=== PATIENT | female | born 1980 | race Caucasian/White ===

== ENCOUNTER 2017-02-24 15:06 | Observation (INO) | payer BC, MEDICAID, OTHER ==
[2017-02-24 15:07] VITALS: BMI 31.1
[2017-02-24 15:30] VITALS: RESP 18; TEMP 98.2; O2SAT 99
[2017-02-24] MEDS ORDERED: Sodium Chloride 0.9% 1,000 ML IV STA (15:41)
--- NOTE | 2017-02-24 15:46 | ED PDOC ---
Arrival/HPI - General Chief Complaint: Female Genitourinary Time Seen by Provider: 02/24/17 15:29 Historian: Patient - History of Present Illness Narrative History of Present Illness (Text): 02/24/17 15:43 36 yo female with a h/o fibroids, Kidney stones, presents to the ED c/o lower abdominal pain since this morning. States the pain is crampy and intermittent. It has worsened since this morning. She tried to take Motrin 800 mg PO in the morning with no relief. She states this feels like her pain she gets every month during her menstrual cycle. FDLMP, she's on day 3. She has mild bleeding at this time. No back pain. No urinary symptoms such as dysuria, frequency or urgency. No hematuria. No vaginal discharge. PMD: Dr. Ang WILKINS: Dr. Mason Past Medical History - Provider Review Nursing Documentation Reviewed: Yes - Infectious Disease Hx of Infectious Diseases: None - Tetanus Immunization Tetanus Immunization: Unknown - Cardiac Hx Cardiac Disorders: No - Pulmonary Hx Respiratory Disorders: No - Neurological Hx Neurological Disorder: No - HEENT Hx HEENT Disorder: No - Renal Hx Renal Disorder: Yes Hx Kidney Stones: Yes - Endocrine/Metabolic Hx Endocrine Disorders: No - Hematological/Oncological Hx Blood Disorders: No - Integumentary Hx Dermatological Disorder: No - Musculoskeletal/Rheumatological Hx Musculoskeletal Disorders: No - Gastrointestinal Hx Gastrointestinal Disorders: Yes Hx Colitis: Yes - Genitourinary/Gynecological Hx Genitourinary Disorders: Yes Other/Comment: fibroids - Psychiatric Hx Psychophysiologic Disorder: No Hx Substance Use: No - Surgical History Other/Comment: lithotripsy - Anesthesia Hx Anesthesia: Yes Hx Anesthesia Reactions: No Family/Social History - Physician Review Nursing Documentation Reviewed: Yes Family/Social History: No Known Family HX Smoking Status: Never Smoked Hx Alcohol Use: No Hx Substance Use: No Allergies/Home Meds Allergies/Adverse Reactions: Allergies No Known Allergies Allergy (Verified 02/24/17 15:22) Home Medications: Home Meds Medication Instructions Recorded Confirmed Norgestimate-Ethinyl Estradiol 1 tab PO DAILY 12/05/16 02/24/17 [Ortho Tri-Cyclen 28 Tablet] Review of Systems - Physician Review All systems were reviewed & negative as marked: Yes - Review of Systems Constitutional: Normal Eyes: Normal ENT: Normal Respiratory: Normal Cardiovascular: Normal Gastrointestinal: Abdominal Pain. absent: Stool Changes, Constipation, Diarrhea , Nausea, Vomiting, Appetite Changes, Hematochezia, Hematemesis, Anorexia, Food Intolerance Genitourinary Female: Vaginal Bleeding. absent: Dysuria, Frequency, Hematuria, Urine Output Changes, Vaginal Discharge Musculoskeletal: Normal. absent: Back Pain Skin: Normal Neurological: Normal Endocrine: Normal Hemo/Lymphatic: Normal Psychiatric: Normal Physical Exam Vital Signs Reviewed: Yes Vital Signs Temp Pulse Resp BP Pulse Ox 02/24/17 18:48 75 18 142/71 99 02/24/17 17:07 79 18 144/76 99 02/24/17 15:29 98.2 F 80 18 146/87 99 Temperature: Afebrile Blood Pressure: Normal Pulse: Regular Respiratory Rate: Normal Appearance: Positive for: Well-Appearing, Non-Toxic, Comfortable Pain Distress: Moderate Mental Status: Positive for: Alert and Oriented X 3 - Systems Exam Head: Present: Atraumatic, Normocephalic Pupils: Present: PERRL Extroacular Muscles: Present: EOMI Conjunctiva: Present: Normal Mouth: Present: Moist Mucous Membranes Neck: Present: Normal Range of Motion Respiratory/Chest: Present: Clear to Auscultation, Good Air Exchange. No: Respiratory Distress, Accessory Muscle Use Cardiovascular: Present: Regular Rate and Rhythm, Normal S1, S2. No: Murmurs Abdomen: Present: Tenderness (lower with guarding), Normal Bowel Sounds, Guarding. No: Distention, Peritoneal Signs, Rebound, McBurney's Point Tender, Rovsing's Sign Present, Mass/Organomegaly Genitourinary/Pelvic Exam: Present: Normal External Genitalia, Vaginal Bleeding (mild bleeding), Cervical os Closed, Other ([place] [facility] [place]). No: Vaginal Discharge, Adenexal Tenderness, Adenexal Mass, Cervical Motion Tendernes Back: Present: Normal Inspection Upper Extremity: Present: Normal Inspection. No: Cyanosis, Edema Lower Extremity: Present: Normal Inspection. No: Edema Neurological: Present: GCS=15, CN II-XII Intact, Speech Normal Skin: Present: Warm, Dry, Normal Color. No: Rashes Psychiatric: Present: Alert, Oriented x 3, Normal Insight, Normal Concentration Medical Decision Making ED Course and Treatment: 02/24/17 15:46 36 yo female with lower abdominal pain r/o fibroids vs menstraul cramps vs ovarian torsion; not likely appendicitis considering good appetitie, no fever, no n/v and negative McBurney's point. -- Labs -- Pain control -- IVF -- TV Sono -- Reevaluation and disposition 02/24/17 18:52 Patient feels better and no longer has pain. Abdomen soft and not tender. No distension. She is tolerating PO fluids. She has follow up with her OBGYN. - Lab Interpretations I have reviewed the lab results: Yes - RAD Interpretation Radiology Orders: 02/24/17 15:41 TRANSVAGINAL [US] Stat - Medication Orders Current Medication Orders: Sodium Chloride (Sodium Chloride 0.9%) 1,000 mls @ 100 mls/hr IV .Q10H STA Stop: 02/25/17 01:40 Last Admin: 02/24/17 16:42 Dose: 100 mls/hr Discontinued Medications Ketorolac Tromethamine (Toradol) 30 mg IVP STAT STA Stop: 02/24/17 15:42 Last Admin: 02/24/17 16:44 Dose: 30 mg Morphine Sulfate (Morphine) 4 mg IVP STAT STA Stop: 02/24/17 17:33 Last Admin: 02/24/17 17:52 Dose: 4 mg Disposition/Present on Arrival - Present on Arrival Any Indicators Present on Arrival: No History of DVT/PE: No History of Uncontrolled Diabetes: No Urinary Catheter: No History of Decub. Ulcer: No History Surgical Site Infection Following: None - Disposition Have Diagnosis and Disposition been Completed?: Yes Diagnosis: Abdominal pain, Menstrual cramp, Fibroids Disposition: HOME/ ROUTINE Disposition Time: 18:53 Patient Plan: Discharge Patient Problems: Current Active Problems Problem Status Onset Abdominal pain Acute Fibroids Acute Menstrual cramp Acute Condition: IMPROVED
[2017-02-24 16:14] LABS: ADD MANUAL DIFF? NO
[2017-02-24 16:21] LABS: BASO # 0.02 [, K/mm3] (0.0-2.0); BASO % 0.3 % (0.0-3.0); EOS # 0.3 (0.0-0.7); EOS % 4.4 % (1.5-5.0); GRAN # 3.46 (1.4-6.5); GRAN % 47.6 % (50.0-68.0); HEMATOCRIT 33.7 % (36.0-48.0); LYMPH % 41.5 % (22.0-35.0); MEAN CELL VOLUME 80.2 fL (80.0-105.0); MEAN CORPUSCULAR HEMOGLOBIN 26.4 pg (25.0-35.0); MEAN CORPUSCULAR HGB CONC 32.9 g/dl (31.0-37.0); MEAN PLATELET VOLUME 11.1 fl (7.0-11.0); MONO # 0.5 (0.1-0.6); MONO % 6.2 % (1.0-6.0); PLATELET COUNT 270 [, 10^3/uL] (120.0-450.0); WHITE BLOOD COUNT 7.3 [, 10^3/ul] (4.5-11.0)
[2017-02-24 16:25] LABS: URINE BILIRUBIN NEGATIVE (NEGATIVE); URINE BLOOD LARGE (NEGATIVE); URINE GLUCOSE (UA) NEGATIVE (NEGATIVE); URINE KETONE NEGATIVE (NEGATIVE); URINE LEUKOCYTE ESTERASE NEGATIVE Leu/uL (NEGATIVE); URINE PROTEIN NEGATIVE mg/dL (<30 mg/dL); URINE UROBILINOGEN 0.2 E.U./dL (<1 E.U./dL)
[2017-02-24 16:27] LABS: URINE APPEARANCE CLEAR (CLEAR); URINE COLOR YELLOW (YELLOW)
[2017-02-24 16:30] LABS: ALB/GLOB RATIO 1.3 (1.1-1.8); ALKALINE PHOSPHATASE 69 U/L (38-133); ALT/SGPT 32 U/L (7-56); AST/SGOT 36 U/L (15-39); BILIRUBIN,TOTAL 0.5 mg/dL (0.2-1.3); BLOOD UREA NITROGEN 14 mg/dL (7-21); CALCIUM 9.3 mg/dL (8.4-10.5); CARBON DIOXIDE 26 mmol/L (21-33); CHLORIDE 100 mmol/L (98-107); GFR AFRICAN-AMERICAN > 60; GLUCOSE,RANDOM 89 mg/dL (70-110); SODIUM 137 mmol/L (132-148); TOTAL PROTEIN 8.1 g/dL (5.8-8.3)
[2017-02-24 16:56] LABS: URINE BACTERIA FEW (NEG); URINE EPITHELIAL CELLS 0 - 2 /hpf (0-5); URINE RBC TNTC /hpf (0-2); URINE WBC 0 - 2 /hpf (0-6)
[2017-02-24] MEDS ORDERED: Morphine 4 mg/ml ISec IVP STA (17:32)
--- NOTE | 2017-02-24 17:39 | US ---
HISTORY: Abdominal pain. Fibroid/torsion/adnexal cysts suspected. LMP 02/22/2017. Menstrual status: Regular cycles. COMPARISON: 11/24/2016. TECHNIQUE: Transvaginal only. Real -time technique with 2D, duplex and color Doppler FINDINGS: UTERUS: Measures 7.8 x 7.2 x 8.4 cm. Solitary fundal fibroid anteriorly 5.5 x 4.8 cm unchanged compared to the prior study. Cm. Normal in size and appearance. No fibroid or other mass lesion seen. ENDOMETRIUM: Measures 3.6 mm in diameter. No ultrasound findings to suggest gestational sac, fluid, debris, mass or polyp or other pathologic process within the endometrium. CERVIX: No cervical abnormality identified.Incidental finding: Nabothian cysts RIGHT OVARY: Measures 2 x 4.6 x 4.4 cm. No solid mass. Normal flow. Multiple subcentimeter follicles. Dominant simple cyst 2 cm. LEFT OVARY: Measures 3.4 x 1.9 x 2.7 cm. No solid mass. Normal flow. FREE FLUID: No significant free fluid noted. OTHER FINDINGS: None. IMPRESSION: No acute findings related to/accounting for the clinical presentation. No significant interval change compared to the prior examination(s). Additional benign and/or incidental findings described above.
[2017-02-24 18:48] VITALS: BP 142/71; PULSE 75
== END 2017-02-24 18:50 | disposition home or self-care (01) ==
LOC: ED 15:06 → EROBSV 15:42
PROVIDERS: ADMIT Emergency Medicine; ATTEND Emergency Medicine
DX: D25.9 Leiomyoma of uterus, unspecified (principal); N94.6 Dysmenorrhea, unspecified; R10.9 Unspecified abdominal pain
CPT/HCPCS: 76830; 80053; 81001; 85025; 96374; 96375; 99283; G0378; J1885; J2270; J7040